=== PATIENT | male | born 1990 | race Caucasian/White ===

== ENCOUNTER 2019-10-27 13:30 | Emergency (ER) | payer OTHER ==
[~2019-10-27] VITALS: Ht 190.5 cm; Wt 68.0 kg
[2019-10-27 13:33] VITALS: BP 160/55
[2019-10-27] MEDS ORDERED: KETOROLAC 60 MG/2 ML VIAL IM ONE (13:50)
[2019-10-27 14:38] VITALS: BP 132/74
== END 2019-10-27 14:39 | disposition home or self-care (01) ==
LOC: MED 13:30
DX: R10.11 Right upper quadrant pain (principal); M62.838 Other muscle spasm; I10 Essential (primary) hypertension; F12.90 Cannabis use, unspecified, uncomplicated
CPT/HCPCS: 74176; 81002; 96372; 99284; J1885